=== PATIENT | female | born 1955 | race Caucasian/White ===

== ENCOUNTER 2016-09-16 14:17 | Outpatient (CLI) | payer MEDICAID, OTHER ==
[2016-09-16 15:07] LABS: Amphetamine Not Detected (NotDetected); Barbiturates Screen Not Detected (NotDetected); Benzodiazepine Screen Not Detected (NotDetected); Cocaine Metabolite Screen Not Detected (NotDetected); Medtox Control Line Valid? VALID (VALID); Methadone Not Detected (NotDetected); Methamphetamine Not Detected (NotDetected); Opiate Screen Not Detected (NotDetected); Oxycodone Screen Not Detected (NotDetected); Phencyclidine (PCP) Not Detected (NotDetected); THC/Cannabinoid Screen Detected (NotDetected); Tricyclic Screen Not Detected (NotDetected)
== END 2016-09-16 14:18 | disposition home or self-care (01) ==
LOC: HPCALD 14:17
PROVIDERS: ATTEND Family Medicine
DX: N39.0 Urinary tract infection, site not specified (principal); F19.20 Other psychoactive substance dependence, uncomplicated
CPT/HCPCS: 80306; 87077; 87086; 87186

== ENCOUNTER 2016-12-27 07:30 | Emergency (ER) | payer MEDICAID, OTHER ==
[2016-12-27] MEDS ORDERED: HYDROcodone/Acetaminophen 10/325 mg Tablet ONE (08:57)
[2016-12-27] MEDS ORDERED: Fentanyl 100 MCG/2 ML VIAL ONE (09:11)
== END 2016-12-27 11:05 | disposition short-term general hospital (02) ==
LOC: BURERS 07:30
DX: M79.604 Pain in right leg (principal); F31.9 Bipolar disorder, unspecified; F17.210 Nicotine dependence, cigarettes, uncomplicated; I73.9 Peripheral vascular disease, unspecified; Z79.82 Long term (current) use of aspirin; Z79.891 Long term (current) use of opiate analgesic; Z79.899 Other long term (current) drug therapy
CPT/HCPCS: 36415; 85379; 96374; J3010

== ENCOUNTER 2017-03-12 16:31 | Emergency (ER) | payer OTHER ==
[2017-03-12] MEDS ORDERED: Benzonatate 100 MG CAP ONE ×2 (16:56→16:59)
--- NOTE | 2017-03-12 21:38 | RAD ---
CHEST TWO VIEWS 03/12/17 The heart is normal in size and the lungs are clear. They are mildly hyperinflated. No lobar infiltra te or effusion was seen to suggest pneumonia. The heart size normal and the mediastinum is unremarkab le. IMPRESSION: No acute thoracic finding. POS: HOME
== END 2017-03-12 17:17 | disposition home or self-care (01) ==
LOC: BURERS 16:31
DX: B34.9 Viral infection, unspecified (principal); F31.9 Bipolar disorder, unspecified; J44.9 Chronic obstructive pulmonary disease, unspecified; F17.210 Nicotine dependence, cigarettes, uncomplicated; Z79.899 Other long term (current) drug therapy; Z79.82 Long term (current) use of aspirin
CPT/HCPCS: 71020; J7620

== ENCOUNTER 2020-03-03 09:03 | Emergency (ER) | payer OTHER ==
[2020-03-03] MEDS ORDERED: Acetaminophen 500 MG TAB ONE (09:25)
--- NOTE | 2020-03-03 09:44 | RAD ---
LEFT WRIST 3 VIEWS: Date: 03/03/2020 No fracture or carpal abnormality seen. The carpal relationships seem normal. The joints are unremark able. The small calcification seen anterior to the proximal row of carpals on the lateral view is pro bably unrelated to any current trauma. IMPRESSION: No significant findings. POS: HOME
== END 2020-03-03 09:45 | disposition home or self-care (01) ==
LOC: BURERS 09:03
DX: S63.502A Unspecified sprain of left wrist, initial encounter (principal); I48.91 Unspecified atrial fibrillation; F31.9 Bipolar disorder, unspecified; F17.210 Nicotine dependence, cigarettes, uncomplicated; Z79.899 Other long term (current) drug therapy; Z79.01 Long term (current) use of anticoagulants; Z86.718 Personal history of other venous thrombosis and embolism; X50.9XXA Other and unspecified overexertion or strenuous movements or postures, initial encounter

== ENCOUNTER 2020-10-24 16:12 | Emergency (ER) | payer OTHER ==
[2020-10-24] MEDS ORDERED: Acetaminophen 500 MG TAB ONE (16:45)
[2020-10-24 16:56] LABS: ALT (SGPT) 16 U/L (8-55); AST (SGOT) 23 U/L (5-34); Albumin 3.8 g/dL (3.4-4.8); Alkaline Phosphatase 97 U/L (40-110); Anion Gap 17 mmol/L (10-20); BUN (Urea Nitrogen) 11 mg/dL (9.8-20.1); Bilirubin, Total 0.8 mg/dL (0.2-1.2); Calc. Creatinine Clearance 0 mL/min (70-130); Calcium 8.9 mg/dL (7.8-10.44); Carbon Dioxide 24 mmol/L (23-31); Chloride 100 mmol/L (98-107); Globulin 3.1 g/dL (2.4-3.5); Glucose 105 mg/dL (80-115); Potassium 3.9 mmol/L (3.5-5.1); Protein, Total 6.9 g/dL (5.8-8.1); Sodium 137 mmol/L (136-145)
[2020-10-24] MEDS ORDERED: Iopamidol 370 76% 100 ML VIAL ONE (17:14)
[2020-10-24 17:30] LABS: #Basophils 0.1 thou/uL (0.0-0.2); #Eosinphils 0.1 thou/uL (0.0-0.7); #Monocytes 1.4 thou/uL (0.11-0.59); #Neutrophils 7.7 thou/uL (1.40-6.50); %Basophils 1.1 % (0.0-1.0); %Eosinophils 0.7 % (0.0-10.0); %Lymphocytes 17.8 % (21.0-51.0); %Monocytes 12.5 % (0.0-10.0); %Neutrophils 67.8 % (42.0-75.0); Mean Corpuscular Hemoglobin 33.9 pg (27.0-31.0); Mean Corpuscular Volume 96.8 fL (78.0-98.0); Mean Platelet Volume 7.8 fL (7.4-10.4); Platelet Count 188 thou/uL (130-400); RBC Distribution Width 11.4 % (11.5-14.5); Red Blood Cell (RBC) Count 4.44 mill/uL (4.20-5.40); White Blood Cell (WBC) Count 11.4 thou/uL (4.8-10.8)
[2020-10-24 17:36] LABS: CKMB 1.5 ng/mL (0-6.6)
[2020-10-24 20:40] LABS: SARS-CoV-2 NAA Rapid Test Not Detected (NotDetected)
== END 2020-10-24 21:02 | disposition short-term general hospital (02) ==
LOC: BURERS 16:12
DX: R06.00 Dyspnea, unspecified (principal); R77.8 Other specified abnormalities of plasma proteins; Z20.822 Contact with and (suspected) exposure to COVID-19; I48.91 Unspecified atrial fibrillation; F17.210 Nicotine dependence, cigarettes, uncomplicated; Z79.01 Long term (current) use of anticoagulants; Z79.899 Other long term (current) drug therapy; Z98.890 Other specified postprocedural states
CPT/HCPCS: 0240U; 36415; 71275; 80053; 82553; 83605; 83880; 84484; 85025; 87040; 93005; 94760; 96374; J3370; J7620; Q9967

== ENCOUNTER 2020-12-27 | Emergency (ER) | payer OTHER | END 2020-12-27 07:54 | disposition home or self-care (01) | DX: M54.5 Low back pain (principal); I48.91 Unspecified atrial fibrillation; F17.210 Nicotine dependence, cigarettes, uncomplicated ==

== ENCOUNTER 2021-01-24 14:32 | Emergency (ER) | payer OTHER ==
[2021-01-24] MEDS ORDERED: Dexamethasone 10 MG/ML VIAL ONE (15:10)
[2021-01-24] MEDS ORDERED: Bupivacaine HCl 0.5%/Epinephrine 1:200,000/PF 30 ml Vial ONE (16:33)
== END 2021-01-24 16:57 | disposition home or self-care (01) ==
LOC: BURERS 14:32
DX: M62.830 Muscle spasm of back (principal); G89.29 Other chronic pain; I48.91 Unspecified atrial fibrillation; F17.210 Nicotine dependence, cigarettes, uncomplicated
CPT/HCPCS: 20553; 72040; 96372; J1100

== ENCOUNTER 2021-08-23 09:11 | Emergency (ER) | payer OTHER ==
[2021-08-23] MEDS ORDERED: Dexamethasone 10 MG/ML VIAL ONE (09:56)
== END 2021-08-23 10:25 | disposition home or self-care (01) ==
LOC: BURERS 09:11
DX: M62.830 Muscle spasm of back (principal); G89.29 Other chronic pain; M54.50 Low back pain, unspecified; I48.91 Unspecified atrial fibrillation; I73.9 Peripheral vascular disease, unspecified; F17.210 Nicotine dependence, cigarettes, uncomplicated; Z79.82 Long term (current) use of aspirin; Z79.899 Other long term (current) drug therapy
CPT/HCPCS: 96372; 99283; J1100

== ENCOUNTER 2022-09-18 17:00 | Emergency (ER) | payer OTHER ==
[2022-09-18] MEDS ORDERED: Orphenadrine Citrate 60 MG/2 ML VIAL ONE (17:20)
[2022-09-18] MEDS ORDERED: methylPREDNISolone Sod Succ/PF 125 MG/2 ML VIAL ONE (17:20)
== END 2022-09-18 17:26 | disposition home or self-care (01) ==
LOC: BURERS 17:00
DX: M54.50 Low back pain, unspecified (principal); G89.29 Other chronic pain; F17.210 Nicotine dependence, cigarettes, uncomplicated
CPT/HCPCS: 96372; 99283; J2360; J2930

== ENCOUNTER 2022-12-06 05:55 | Emergency (ER) | payer MEDICARE, OTHER ==
[2022-12-06 06:49] LABS: #Lymphocytes 1.2 thou/uL (1.20-3.40); #Monocytes 0.6 thou/uL (0.11-0.59); #Neutrophils 3.9 thou/uL (1.40-6.50); %Basophils 0.7 % (0.0-1.0); %Eosinophils 0.5 % (0.0-10.0); %Lymphocytes 20.7 % (21.0-51.0); %Monocytes 9.9 % (0.0-10.0); %Neutrophils 68.2 % (42.0-75.0); Hemoglobin 15.7 g/dL (12.0-16.0); Mean Corpuscular Hemoglobin 32.4 pg (27.0-31.0); Mean Corpuscular Volume 95.2 fl (78.0-98.0); Mean Platelet Volume 7.2 fL (7.4-10.4); Platelet Count 139 10x3/uL (130-400); RBC Distribution Width 11.3 % (11.5-14.5); Red Blood Cell (RBC) Count 4.83 mill/uL (4.20-5.40); White Blood Cell (WBC) Count 5.8 10x3/uL (4.8-10.8)
[2022-12-06 07:02] LABS: ALT (SGPT) 20 U/L (8-55); AST (SGOT) 15 U/L (5-34); Albumin 3.8 g/dL (3.4-4.8); Alkaline Phosphatase 65 U/L (40-110); Anion Gap 15 mmol/L (10-20); BUN (Urea Nitrogen) 14 mg/dL (9.8-20.1); Bilirubin, Total 0.4 mg/dL (0.2-1.2); Calc. Creatinine Clearance 0 mL/min (70-130); Calcium 9.1 mg/dL (7.8-10.44); Carbon Dioxide 24 mmol/L (23-31); Chloride 106 mmol/L (98-107); Estimated GFR 97; Globulin 2.6 g/dL (2.4-3.5); Glucose 94 mg/dL (80-115); Potassium 4.3 mmol/L (3.5-5.1); Protein, Total 6.4 g/dL (5.8-8.1); Sodium 141 mmol/L (136-145)
== END 2022-12-06 07:48 | disposition home or self-care (01) ==
LOC: BURERS 05:55
DX: M25.511 Pain in right shoulder (principal); I10 Essential (primary) hypertension; K21.9 Gastro-esophageal reflux disease without esophagitis; F17.210 Nicotine dependence, cigarettes, uncomplicated; Z79.82 Long term (current) use of aspirin; Z79.899 Other long term (current) drug therapy
CPT/HCPCS: 36415; 80053; 85025